=== PATIENT | female | born 1985 | race Caucasian/White ===

== ENCOUNTER → 2020-11-19 | Outpatient (CLI) | payer OTHER | LOC: KOH-I 16:00 | DX: E04.9 Nontoxic goiter, unspecified (principal); R59.0 Localized enlarged lymph nodes | CPT/HCPCS: 76536 ==

== ENCOUNTER → 2020-12-05 | Outpatient (CLI) | payer OTHER | LOC: KOH-I 10:15 | DX: S86.311A Strain of muscle(s) and tendon(s) of peroneal muscle group at lower leg level, right leg, initial encounter (principal); M93.271 Osteochondritis dissecans, right ankle and joints of right foot; R60.0 Localized edema | CPT/HCPCS: 73721 ==

== ENCOUNTER → 2021-09-08 | Outpatient (CLI) | payer OTHER | LOC: KOH-I 10:10 | DX: J18.9 Pneumonia, unspecified organism (principal) | CPT/HCPCS: 71046 ==

== ENCOUNTER → 2021-10-27 | Outpatient (CLI) | payer OTHER | LOC: KOH-I 09:00 | DX: E04.9 Nontoxic goiter, unspecified (principal); R59.9 Enlarged lymph nodes, unspecified | CPT/HCPCS: 76536 ==